=== PATIENT | female | born 1950 | race Caucasian/White ===

== ENCOUNTER → 2016-09-23 | Outpatient (CLI) | payer OTHER ==
[~2016-09-23] MED LIST: AMLODIPINE10 MG PO; ANAPROX DS550 MG PO; ASPIRIN80 MG PO; AUGMENTIN 875 M1 TAB PO; CLARITIN10 MG PO; FOSAMAX70 MG PO; GLIPIZIDE XL5 MG PO; LISINOPRIL10 MG PO; LOVASTATIN20 MG PO; METFORMIN500 MG PO; NEXIUM40 MG PO; TOPROL XL100 MG PO; VITAMIN D2000 IU PO
== END | disposition home or self-care (01) ==
LOC: US 14:00
DX: E04.9 Nontoxic goiter, unspecified (principal)

== ENCOUNTER → 2017-04-05 | Outpatient (CLI) | payer OTHER ==
[2017-04-05 08:13] LABS: BILIRUBIN NEGATIVE (NEGATIVE); BLOOD TRACE-LYSED (NEGATIVE); CLARITY SL CLOUDY (CLEAR); COLOR YELLOW (YELLOW); GLUCOSE 3+ (NEGATIVE); KETONE NEGATIVE (NEGATIVE); LEUKO ESTERASE NEGATIVE (NEGATIVE); NITRITE NEGATIVE (NEGATIVE)
[2017-04-05 08:32] LABS: BACTERIA 1+; EPITHELIAL CELLS 16-20; WBC 0-2 wbc/hpf (0-5); YEAST 1+
[2017-04-05 08:41] LABS: ALBUMIN 3.4 gm/dl (3.1-4.5); ALKALINE PHOSPHATASE 79 U/L (45-117); BILIRUBIN, DIRECT 0.1 mg/dL (0.0-0.2); BUN 23 mg/dl (7-24); CHLORIDE 101 mmol/L (98-107); CHOLESTEROL 180 mg/dL (<200); CREATININE 0.71 mg/dL (0.55-1.02); POTASSIUM 3.5 mmol/L (3.5-5.1); SGOT/AST 14 IU/L (3-35); SGPT/ALT 22 U/L (12-78); SODIUM 139 mmol/L (136-145); TOTAL PROTEIN 7.6 gm/dL (6.4-8.2); TRIGLYCERIDES 138 mg/dl (<150); VLDL CHOLESTEROL 28 mg/dL (6-40)
[2017-04-05 08:47] LABS: FREE T4 1.27 ng/dl (0.76-1.46); HDL CHOLESTEROL 58 mg/dl (40-60); LDL CHOLESTEROL 94 mg/dL (9-159)
== END | disposition home or self-care (01) ==
LOC: LAB 07:40
PROVIDERS: Internal Medicine
DX: E11.65 Type 2 diabetes mellitus with hyperglycemia (principal); E04.2 Nontoxic multinodular goiter; E78.5 Hyperlipidemia, unspecified; E55.9 Vitamin D deficiency, unspecified

== ENCOUNTER → 2017-08-03 | Outpatient (CLI) | payer OTHER ==
[2017-08-03 08:16] LABS: HEMATOCRIT 40.4 % (37.0-47.0); HEMOGLOBIN 12.8 g/dl (12.0-16.0); MEAN CELL VOLUME 85.8 fl (81.0-99.0); MEAN CORPUSCULAR HGB 27.2 pg (27.0-31.0); MEAN CORPUSCULAR HGB CONC 31.7 g/dl (33.0-37.0); MEAN PLATELET VOLUME 10.5 fl (9.6-12.3); RED BLOOD COUNT 4.71 10*6/uL (4.10-5.10); RED CELL DISTRI WIDTH 13.3 % (0-14.5); WHITE BLOOD COUNT 8.2 10*3/uL (4.8-10.8)
[2017-08-03 08:44] LABS: ALBUMIN 3.3 gm/dl (3.1-4.5); ALKALINE PHOSPHATASE 71 U/L (45-117); BUN 23 mg/dl (7-24); CHLORIDE 103 mmol/L (98-107); CHOLESTEROL 162 mg/dL (<200); CREATININE 0.72 mg/dL (0.55-1.02); HDL CHOLESTEROL 53 mg/dl (40-60); LDL CHOLESTEROL 89 mg/dL (9-159); POTASSIUM 3.5 mmol/L (3.5-5.1); SGOT/AST 15 IU/L (3-35); SGPT/ALT 16 U/L (12-78); SODIUM 137 mmol/L (136-145); TOTAL PROTEIN 7.2 gm/dL (6.4-8.2); TRIGLYCERIDES 100 mg/dl (<150); VLDL CHOLESTEROL 20 mg/dL (6-40)
== END | disposition home or self-care (01) ==
LOC: LAB 07:35
DX: E78.00 Pure hypercholesterolemia, unspecified (principal); E11.9 Type 2 diabetes mellitus without complications

== ENCOUNTER → 2017-09-16 | Outpatient (CLI) | payer OTHER ==
[2017-09-16 08:18] LABS: BILIRUBIN NEGATIVE (NEGATIVE); BLOOD TRACE-INTACT (NEGATIVE); CLARITY SL CLOUDY (CLEAR); COLOR YELLOW (YELLOW); GLUCOSE 3+ (NEGATIVE); KETONE NEGATIVE (NEGATIVE); LEUKO ESTERASE NEGATIVE (NEGATIVE); NITRITE NEGATIVE (NEGATIVE); UROBILINOGEN 0.2 E.U./dl (0.2-1.0)
[2017-09-16 09:14] LABS: ALBUMIN 3.5 gm/dl (3.1-4.5); ALKALINE PHOSPHATASE 71 U/L (45-117); BILIRUBIN, DIRECT 0.1 mg/dL (0.0-0.2); BUN 21 mg/dl (7-24); CHLORIDE 103 mmol/L (98-107); CREATININE 0.69 mg/dL (0.55-1.02); FREE T4 1.09 ng/dl (0.76-1.46); POTASSIUM 3.4 mmol/L (3.5-5.1); SGOT/AST 13 IU/L (3-35); SGPT/ALT 21 U/L (12-78); SODIUM 139 mmol/L (136-145); TOTAL PROTEIN 7.7 gm/dL (6.4-8.2); TRIGLYCERIDES 125 mg/dl (<150); VLDL CHOLESTEROL 25 mg/dL (6-40)
[2017-09-16 09:21] LABS: CHOLESTEROL 167 mg/dL (<200); HDL CHOLESTEROL 58 mg/dl (40-60); LDL CHOLESTEROL 84 mg/dL (9-159)
== END ==
LOC: LAB 07:40
PROVIDERS: Internal Medicine
DX: E11.65 Type 2 diabetes mellitus with hyperglycemia (principal); E04.2 Nontoxic multinodular goiter; E78.5 Hyperlipidemia, unspecified; E55.9 Vitamin D deficiency, unspecified

== ENCOUNTER → 2018-06-14 | Outpatient (CLI) | payer MEDICARE ==
[~2018-06-14] MED LIST changes: +AVPAK AZITHROM250 MG PO; +CHERATUSSIN AC118 M1 PO; +PREDNISONE50 MG PO
== END | disposition home or self-care (01) ==
LOC: RAD 13:30
DX: Z12.31 Encounter for screening mammogram for malignant neoplasm of breast (principal); Z13.820 Encounter for screening for osteoporosis; M81.0 Age-related osteoporosis without current pathological fracture; Z78.0 Asymptomatic menopausal state; Z90.710 Acquired absence of both cervix and uterus; Z85.828 Personal history of other malignant neoplasm of skin

== ENCOUNTER → 2020-04-10 | Outpatient (CLI) | payer MEDICARE | END | disposition home or self-care (01) | LOC: MAMMO 04-09 15:30 | PROVIDERS: ATTEND Physician Assistant | DX: Z12.31 Encounter for screening mammogram for malignant neoplasm of breast (principal) ==

== ENCOUNTER → 2020-06-26 | Outpatient (CLI) | payer MEDICARE ==
[2020-06-26 11:11] LABS: MEAN CELL VOLUME 86.3 fl (81.0-99.0); MEAN CORPUSCULAR HGB 25.7 pg (27.0-31.0); MEAN CORPUSCULAR HGB CONC 29.8 g/dl (33.0-37.0); MEAN PLATELET VOLUME 9.7 fl (9.6-12.3); RED BLOOD COUNT 4.75 10*6/uL (4.10-5.10); RED CELL DISTRI WIDTH 14.3 % (0-14.5); WHITE BLOOD COUNT 7.5 10*3/uL (4.8-10.8)
[2020-06-26 11:40] LABS: ALKALINE PHOSPHATASE 88 U/L (45-117); BUN 27 mg/dl (7-24); CHLORIDE 106 mmol/L (98-107); CHOLESTEROL 170 mg/dL (<200); CREATININE 0.72 mg/dL (0.55-1.02); HDL CHOLESTEROL 70 mg/dl (40-60); LDL CHOLESTEROL 86 mg/dL (9-159); POTASSIUM 4.2 mmol/L (3.5-5.1); SGOT/AST 11 IU/L (3-35); SGPT/ALT 19 U/L (12-78); SODIUM 140 mmol/L (136-145); TOTAL PROTEIN 7.1 gm/dL (6.4-8.2); TRIGLYCERIDES 71 mg/dl (<150); VLDL CHOLESTEROL 14 mg/dL (6-40)
== END | disposition home or self-care (01) ==
LOC: LAB 10:55
PROVIDERS: ATTEND Physician Assistant
DX: E11.9 Type 2 diabetes mellitus without complications (principal)

== ENCOUNTER → 2021-06-09 | Outpatient (CLI) | payer MEDICARE | END | disposition home or self-care (01) | LOC: MAMMO 14:00 | PROVIDERS: ATTEND Physician Assistant | DX: Z12.31 Encounter for screening mammogram for malignant neoplasm of breast (principal); E04.9 Nontoxic goiter, unspecified ==

== ENCOUNTER → 2021-06-17 | Outpatient (CLI) | payer MEDICARE ==
[2021-06-17 09:40] LABS: HEMATOCRIT 41.7 % (37.0-47.0); MEAN CELL VOLUME 87.2 fl (81.0-99.0); MEAN CORPUSCULAR HGB 26.6 pg (27.0-31.0); MEAN CORPUSCULAR HGB CONC 30.5 g/dl (33.0-37.0); RED BLOOD COUNT 4.78 10*6/uL (4.10-5.10); RED CELL DISTRI WIDTH 13.9 % (0-14.5); WHITE BLOOD COUNT 7.1 10*3/uL (4.8-10.8)
[2021-06-17 09:53] LABS: ALBUMIN 2.9 gm/dl (3.1-4.5); ALKALINE PHOSPHATASE 71 U/L (45-117); BUN 24 mg/dl (7-24); CHLORIDE 104 mmol/L (98-107); CHOLESTEROL 167 mg/dL (<200); CREATININE 0.82 mg/dL (0.55-1.02); LDL CHOLESTEROL 82 mg/dL (9-159); POTASSIUM 3.9 mmol/L (3.5-5.1); SGOT/AST 13 IU/L (3-35); SGPT/ALT 19 U/L (12-78); SODIUM 140 mmol/L (136-145); TOTAL PROTEIN 6.9 gm/dL (6.4-8.2); TRIGLYCERIDES 97 mg/dl (<150)
== END | disposition home or self-care (01) ==
LOC: LAB 09:21
PROVIDERS: ATTEND Physician Assistant
DX: E11.9 Type 2 diabetes mellitus without complications (principal)

== ENCOUNTER → 2022-07-30 | Outpatient (CLI) | payer MEDICARE ==
[2022-07-30 10:04] LABS: HEMATOCRIT 38.2 % (37.0-47.0); MEAN CELL VOLUME 86.2 fl (81.0-99.0); MEAN CORPUSCULAR HGB 27.8 pg (27.0-31.0); MEAN CORPUSCULAR HGB CONC 32.2 g/dl (33.0-37.0); MEAN PLATELET VOLUME 11.1 fl (9.6-12.3); RED BLOOD COUNT 4.43 10*6/uL (4.10-5.10); RED CELL DISTRI WIDTH 13.4 % (0-14.5); WHITE BLOOD COUNT 7.1 10*3/uL (4.8-10.8)
[2022-07-30 10:21] LABS: ALKALINE PHOSPHATASE 86 U/L (46-116); BUN 18 mg/dl (9-23); CHLORIDE 101 mmol/L (98-107); CHOLESTEROL 192 mg/dL (<200); LDL CHOLESTEROL 110 mg/dL (9-159); POTASSIUM 3.7 mmol/L (3.4-5.1); SGPT/ALT 10 U/L (10-49); TOTAL PROTEIN 7.1 gm/dL (6.0-8.0); TRIGLYCERIDES 117 mg/dl (<150)
== END | disposition home or self-care (01) ==
LOC: LAB 08:46 → MAMMO 09:00
PROVIDERS: ATTEND Physician Assistant
DX: Z12.31 Encounter for screening mammogram for malignant neoplasm of breast (principal); I10 Essential (primary) hypertension; E11.9 Type 2 diabetes mellitus without complications

== ENCOUNTER → 2023-04-28 | Outpatient (CLI) | payer MEDICARE | END | disposition home or self-care (01) | LOC: LAB 15:43 | PROVIDERS: ATTEND Internal Medicine Endocrinology, Diabetes & Metabolism | DX: E89.0 Postprocedural hypothyroidism (principal) ==

== ENCOUNTER → 2023-07-02 | Outpatient (CLI) | payer MEDICARE ==
[2023-07-02 10:44] LABS: HEMATOCRIT 38.1 % (37.0-47.0); MEAN CELL VOLUME 88.8 fl (81.0-99.0); MEAN CORPUSCULAR HGB 26.6 pg (27.0-31.0); MEAN CORPUSCULAR HGB CONC 29.9 g/dl (33.0-37.0); MEAN PLATELET VOLUME 10.4 fl (9.6-12.3); RED BLOOD COUNT 4.29 10*6/uL (4.10-5.10); RED CELL DISTRI WIDTH 13.8 % (0-14.5); WHITE BLOOD COUNT 6.4 10*3/uL (4.8-10.8)
[2023-07-02 11:11] LABS: ALKALINE PHOSPHATASE 88 U/L (46-116); BUN 22 mg/dl (9-23); CHLORIDE 106 mmol/L (98-107); CHOLESTEROL 172 mg/dL (<200); LDL CHOLESTEROL 88 mg/dL (9-159); POTASSIUM 3.7 mmol/L (3.4-5.1); SGPT/ALT 9 U/L (5-49); TOTAL PROTEIN 6.7 gm/dL (6.0-8.0); TRIGLYCERIDES 130 mg/dl (<150)
[2023-07-02 11:27] LABS: FREE T4 1.51 ng/dl (0.89-1.76)
== END | disposition home or self-care (01) ==
LOC: LAB 09:28
PROVIDERS: ATTEND Physician Assistant
DX: E11.9 Type 2 diabetes mellitus without complications (principal); E89.0 Postprocedural hypothyroidism; E83.51 Hypocalcemia; E11.65 Type 2 diabetes mellitus with hyperglycemia; I10 Essential (primary) hypertension; C73 Malignant neoplasm of thyroid gland; D44.12 Neoplasm of uncertain behavior of left adrenal gland

== ENCOUNTER → 2023-11-25 | Outpatient (CLI) | payer MEDICARE ==
[2023-11-25 10:26] LABS: MEAN CELL VOLUME 88.4 fl (81.0-99.0); MEAN CORPUSCULAR HGB 27.8 pg (27.0-31.0); MEAN CORPUSCULAR HGB CONC 31.4 g/dl (33.0-37.0); MEAN PLATELET VOLUME 10.5 fl (9.6-12.3); RED BLOOD COUNT 3.96 10*6/uL (4.10-5.10); RED CELL DISTRI WIDTH 13.7 % (0-14.5); WHITE BLOOD COUNT 8.1 10*3/uL (4.8-10.8)
[2023-11-25 11:05] LABS: POTASSIUM 3.4 mmol/L (3.4-5.1); TOTAL PROTEIN 6.7 gm/dL (6.0-8.0)
[2023-11-25 11:08] LABS: TOTAL PROTEIN 6.8 gm/dL (6.0-8.0)
== END | disposition home or self-care (01) ==
LOC: LAB 09:41
PROVIDERS: Physician Assistant; ATTEND Internal Medicine Endocrinology, Diabetes & Metabolism
DX: C73 Malignant neoplasm of thyroid gland (principal); I11.0 Hypertensive heart disease with heart failure; I50.9 Heart failure, unspecified; E11.9 Type 2 diabetes mellitus without complications; I48.91 Unspecified atrial fibrillation; E89.0 Postprocedural hypothyroidism; E55.9 Vitamin D deficiency, unspecified; E11.65 Type 2 diabetes mellitus with hyperglycemia; D44.12 Neoplasm of uncertain behavior of left adrenal gland

== ENCOUNTER → 2024-04-06 | Outpatient (CLI) | payer MEDICARE | END | disposition home or self-care (01) | LOC: MAMMO 00:14 | PROVIDERS: ATTEND Physician Assistant | DX: Z12.31 Encounter for screening mammogram for malignant neoplasm of breast (principal) ==

== ENCOUNTER → 2024-11-14 | Outpatient (CLI) | payer MEDICARE ==
[2024-11-14 09:52] LABS: BUN 29.0 mg/dl (9-23); FREE T4 1.57 ng/dl (0.89-1.76); SGPT/ALT 8.0 U/L (5-49)
== END | disposition home or self-care (01) ==
LOC: LAB 08:40
PROVIDERS: ATTEND Internal Medicine Endocrinology, Diabetes & Metabolism
DX: E11.65 Type 2 diabetes mellitus with hyperglycemia (principal)

== ENCOUNTER → 2024-12-07 | Outpatient (CLI) | payer MEDICARE | END | disposition home or self-care (01) | LOC: LAB 08:51 | PROVIDERS: ATTEND Internal Medicine Endocrinology, Diabetes & Metabolism | DX: E11.65 Type 2 diabetes mellitus with hyperglycemia (principal) ==